=== PATIENT | female | born 1940 | race Caucasian/White ===

== ENCOUNTER → 2016-05-25 | Outpatient (CLI) | payer OTHER | LOC: RAD 13:59 | PROVIDERS: ATTEND Family Medicine | DX: J43.9 Emphysema, unspecified (principal); I10 Essential (primary) hypertension; M48.8X6 Other specified spondylopathies, lumbar region; M81.0 Age-related osteoporosis without current pathological fracture; F43.21 Adjustment disorder with depressed mood; Z96.642 Presence of left artificial hip joint; Z98.890 Other specified postprocedural states | CPT/HCPCS: 99214 ==

== ENCOUNTER → 2016-05-27 | Outpatient (CLI) | payer OTHER ==
[2016-05-27 11:37] LABS: HEMOGLOBIN 12.3 g/dL (12.0-16.0); MEAN CORPUSCULAR HEMOGLOBIN 30.6 PG (27-31); MEAN CORPUSCULAR HGB CONC 31.5 g/dL (33-37); MEAN PLATELET VOLUME 8.8 FL (7.4-12.2); RDW COEFFICIENT OF VARIATION 13.9 % (11.5-14.5); RED BLOOD COUNT 4.02 10^6/uL (4.20-5.40); WHITE BLOOD COUNT 6.24 10^3/uL (4.8-10.8)
[2016-05-27 12:47] LABS: CHLORIDE 103 meq/L (98-112); CREATININE 0.4 mg/dL (0.50-1.20); GLUCOSE 107 mg/dL (78-110); POTASSIUM 4.2 meq/L (3.8-5.2); SODIUM 138 meq/L (135-145)
[2016-05-27 12:48] LABS: ASPARTATE AMINO TRANSFERASE 49 IU/L (8-39); BILIRUBIN,TOTAL 0.5 mg/dL (0.3-1.2); CALCIUM 9.2 mg/dL (8.7-10.7); TOTAL PROTEIN 6.9 g/dL (6.1-8.0)
== END ==
LOC: LAB 11:06
PROVIDERS: ATTEND Family Medicine
DX: M81.0 Age-related osteoporosis without current pathological fracture (principal); I10 Essential (primary) hypertension; R53.83 Other fatigue; M89.9 Disorder of bone, unspecified
CPT/HCPCS: 36415; 80053; 84443; 85027

== ENCOUNTER → 2016-06-03 | Outpatient (CLI) | payer OTHER | LOC: MMPC 09:00 | PROVIDERS: ATTEND Family Medicine | DX: M48.54XS Collapsed vertebra, not elsewhere classified, thoracic region, sequela of fracture (principal); M81.0 Age-related osteoporosis without current pathological fracture; F43.21 Adjustment disorder with depressed mood | CPT/HCPCS: 99213; G0463 ==

== ENCOUNTER → 2016-07-07 | Outpatient (CLI) | payer OTHER | LOC: MMPC 09:00 | PROVIDERS: ATTEND Family Medicine | DX: G89.29 Other chronic pain (principal); I10 Essential (primary) hypertension | CPT/HCPCS: 99213 ==

== ENCOUNTER → 2016-08-03 | Outpatient (CLI) | payer OTHER | LOC: MMPC 09:00 | PROVIDERS: ATTEND Family Medicine | DX: M16.12 Unilateral primary osteoarthritis, left hip (principal); M54.5 Low back pain; M25.511 Pain in right shoulder | CPT/HCPCS: 99213; G0463 ==

== ENCOUNTER → 2016-09-08 | Outpatient (CLI) | payer OTHER ==
[2016-09-08 15:17] LABS: HEMATOCRIT 39.5 % (37.0-47.0); HEMOGLOBIN 12.6 g/dL (12.0-16.0); MEAN CORPUSCULAR HEMOGLOBIN 31.7 PG (27-31); MEAN CORPUSCULAR HGB CONC 31.9 g/dL (33-37); MEAN CORPUSCULAR VOLUME 99.2 FL (81-99); MEAN PLATELET VOLUME 9.2 FL (7.4-12.2); RED BLOOD COUNT 3.98 10^6/uL (4.20-5.40)
[2016-09-08 15:21] LABS: BILIRUBIN,URINE NEGATIVE (NEG); COLOR,URINE YELLOW; GLUCOSE, URINE (UA) NEGATIVE (NEG); NITRATE,URINE NEGATIVE (NEG); OCCULT BLOOD,URINE Trace-lysed (NEG); PROTEIN,URINE 30 mg/dl (NEG); UROBILINOGEN,URINE 0.2 EU/dL (0.2)
[2016-09-08 15:22] LABS: CLARITY,URINE CLEAR (CLEAR)
[2016-09-08 15:29] LABS: RBC,URINE 0-1 /hpf; SQUAMOUS EPITHELIAL CELL,UR FEW; URINE SAMPLE TYPE VOID; WBC,URINE 0-2
[2016-09-08 15:33] LABS: BLOOD UREA NITROGEN 22 mg/dL (7-22); CALCIUM 9.6 mg/dL (8.7-10.7); SERUM ALBUMIN 3.8 g/dL (3.5-4.8)
[2016-09-08 18:04] LABS: FREE T4 (FREE THYROXINE) 1.14 ng/dL (0.93-1.71)
== END ==
LOC: MOB LAB 14:24
PROVIDERS: ATTEND Family Medicine
DX: I10 Essential (primary) hypertension (principal); R53.83 Other fatigue; J43.9 Emphysema, unspecified
CPT/HCPCS: 36415; 80053; 80198; 81001; 84439; 84443; 85027

== ENCOUNTER → 2016-09-16 | Outpatient (CLI) | payer OTHER | LOC: MMPC 09:00 | PROVIDERS: ATTEND Family Medicine | DX: I10 Essential (primary) hypertension (principal); R79.9 Abnormal finding of blood chemistry, unspecified; D64.9 Anemia, unspecified | CPT/HCPCS: 99214; G0463 ==

== ENCOUNTER → 2016-09-27 | Outpatient (CLI) | payer OTHER | LOC: MMPC 09:00 | DX: S20.211A Contusion of right front wall of thorax, initial encounter (principal) | CPT/HCPCS: 99212; G0463 ==

== ENCOUNTER → 2016-10-27 | Outpatient (CLI) | payer OTHER | LOC: LAB 12:30 | PROVIDERS: ATTEND Family Medicine | DX: R10.84 Generalized abdominal pain (principal) | CPT/HCPCS: 82272 ==

== ENCOUNTER → 2016-11-02 | Outpatient (CLI) | payer OTHER ==
--- NOTE | 2016-11-08 15:20 | HOLTER ---
[facility] Interpretive Statements [id number]
== END ==
LOC: EKG 12:20
PROVIDERS: ATTEND Family Medicine
DX: R55 Syncope and collapse (principal); I10 Essential (primary) hypertension; J44.9 Chronic obstructive pulmonary disease, unspecified; Z99.81 Dependence on supplemental oxygen; Z87.891 Personal history of nicotine dependence
CPT/HCPCS: 99213; G0463; 93225; 93226; 93227

== ENCOUNTER → 2016-11-05 | Outpatient (CLI) | payer OTHER ==
--- NOTE | 2016-11-05 12:50 | DI ---
US CAROTIDS B/L,11/05/2016 10:24 AM: Clinical History: Unspecified syncope. Previous Exam: None at this facility. Findings: Multiple grayscale and color Doppler sonographic images are obtained of the carotid systems bilateral ly, and demonstrate peripheral vascular calcifications noted within the carotid systems bilaterally. Evaluation of peak systolic velocity demonstrates no evidence of elevated peak systolic velocity. The maximum peak systolic velocity on the right was less than 100 and on the left within the internal ca rotid artery measuring 100 cm/s. The ICA to CCA ratio measured 1.0 on the right and 1.2 on the left. Impression: Mild peripheral vascular disease within the carotid bilaterally without any evidence of hemodynamical ly significant stenosis.
== END ==
LOC: US 10:20
PROVIDERS: ATTEND Family Medicine
DX: R55 Syncope and collapse (principal); I73.9 Peripheral vascular disease, unspecified; Z87.891 Personal history of nicotine dependence
CPT/HCPCS: 93880

== ENCOUNTER → 2016-11-17 | Outpatient (CLI) | payer OTHER | LOC: MMPC 09:00 | PROVIDERS: ATTEND Family Medicine | DX: R55 Syncope and collapse (principal) | CPT/HCPCS: 99213; G0463 ==

== ENCOUNTER → 2016-12-02 | Outpatient (CLI) | payer OTHER | LOC: MMPC 09:00 | PROVIDERS: ATTEND Family Medicine | DX: F43.21 Adjustment disorder with depressed mood (principal); J44.9 Chronic obstructive pulmonary disease, unspecified | CPT/HCPCS: 99213; G0463 ==

== ENCOUNTER → 2016-12-22 | Outpatient (CLI) | payer OTHER | LOC: MMPC 09:00 | PROVIDERS: ATTEND Family Medicine | DX: M20.011 Mallet finger of right finger(s) (principal); M79.644 Pain in right finger(s) | CPT/HCPCS: 99212 ==

== ENCOUNTER → 2016-12-25 | Outpatient (CLI) | payer OTHER | LOC: MMPC 09:00 | DX: S80.11XA Contusion of right lower leg, initial encounter (principal); W18.39XA Other fall on same level, initial encounter | CPT/HCPCS: 99212; G0463 ==